=== PATIENT | male | born 1985 | race Caucasian/White ===

== ENCOUNTER 2016-07-26 11:16 | Emergency (ER) | payer SELFPAY ==
[~2016-07-26] VITALS: Ht 177.8 cm; Wt 65.0 kg
[~2016-07-26 11:16] MED LIST: CLIN1CAP5 PO; MEDR4PAK3 PO; PERC7.5T13 PO
[2016-07-26 11:17] VITALS: BP 130/86; PULSE 120; RESP 14; TEMP 98.1; O2SAT 96
[2016-07-26 11:33] VITALS: PULSE 97; RESP 20; O2SAT 95
[2016-07-26] MEDS ORDERED: CHLOTAB5 PO (11:34)
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
--- NOTE | 2016-07-26 12:50 | RADRPT ---
EXAM DATE/TIME: 07/26/2016 12:23 [facility] COMPARISON: CHEST SINGLE AP, September 23, 2013, 11:32. INDICATIONS : Shortness of breath. Cough. MEDICAL HISTORY : None. SURGICAL HISTORY : None. ENCOUNTER: Initial ACUITY: 1 week PAIN SCORE: 0/10 LOCATION: Bilateral chest FINDINGS: A single view of the chest demonstrates the lungs to be symmetrically aerated without evidence of mas s, infiltrate or effusion. The cardiomediastinal contours are unremarkable. Osseous structures are intact. Screw-plate fixation device is again noted fixing an old left clavicular fracture. CONCLUSION: No acute cardiopulmonary disease. There is no evidence of pneumonia. Chano Veloz MD on July 26, 2016 at 12:48 Board Certified Radiologist. This report was verified electronically.
[2016-07-26] MEDS ORDERED: OSEL75 PO (13:14)
== END 2016-07-26 13:22 | disposition home or self-care (01) ==
LOC: NEPB 11:16
DX: J09.X2 Influenza due to identified novel influenza A virus with other respiratory manifestations (principal); R50.9 Fever, unspecified; J02.9 Acute pharyngitis, unspecified; J45.909 Unspecified asthma, uncomplicated; F17.210 Nicotine dependence, cigarettes, uncomplicated
CPT/HCPCS: 71010; 87081; 87804; 87880; 99283

== ENCOUNTER 2017-01-15 09:42 | Emergency (ER) | payer SELFPAY ==
[~2017-01-15 09:42] MED LIST changes: +CHLOTAB5 PO; -CLIN1CAP5 PO; -MEDR4PAK3 PO; +OSEL75 PO; -PERC7.5T13 PO
[2017-01-15 09:49] VITALS: BP 140/91; PULSE 111; RESP 15; TEMP 98.2; O2SAT 98
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
[2017-01-15] MEDS ORDERED: VENTAER INH (10:00)
[2017-01-15] MEDS ORDERED: AMOX875T PO (10:00)
[2017-01-15] MEDS ORDERED: FLUT1SPR5 EACH NARE (10:00)
== END 2017-01-15 10:23 | disposition home or self-care (01) ==
LOC: NEPD 09:42
DX: J01.00 Acute maxillary sinusitis, unspecified (principal); J20.9 Acute bronchitis, unspecified; J45.909 Unspecified asthma, uncomplicated; F17.200 Nicotine dependence, unspecified, uncomplicated; Z79.899 Other long term (current) drug therapy
CPT/HCPCS: 99284

== ENCOUNTER 2017-11-13 10:30 | Emergency (ER) | payer SELFPAY ==
[~2017-11-13] VITALS: Ht 177.8 cm; Wt 70.0 kg
[~2017-11-13 10:30] MED LIST changes: +AMOX875T PO; +FLUT1SPR5 EACH NARE; +VENTAER INH
[2017-11-13 10:40] VITALS: BP 103/67; PULSE 67; RESP 16; TEMP 97.6; O2SAT 99
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
[2017-11-13] MEDS ORDERED: KETOROLAC TROMETHAMINE 60 MG/2 ML (IM) VIAL IM ONE (12:15)
[2017-11-13] MEDS ORDERED: ORPHENADRINE INJ 60 MG/2 ML AMP IM ONE (12:15)
[2017-11-13] MEDS ORDERED: IBUP1TAB7 PO (12:16)
[2017-11-13] MEDS ORDERED: ROBA500T PO (12:16)
== END 2017-11-13 12:33 | disposition home or self-care (01) ==
LOC: NEPD 10:30
DX: S39.012A Strain of muscle, fascia and tendon of lower back, initial encounter (principal); M62.830 Muscle spasm of back; J45.909 Unspecified asthma, uncomplicated; F17.200 Nicotine dependence, unspecified, uncomplicated; X50.0XXA Overexertion from strenuous movement or load, initial encounter
CPT/HCPCS: 96372; 99283; J1885; J2360